=== PATIENT | female | born 1965 | race Caucasian/White ===

== ENCOUNTER 2019-01-23 05:46 | Day surgery (SDC) | payer MEDICAID, OTHER ==
[~2019-01-23] VITALS: Ht 165.1 cm; Wt 77.0 kg
[~2019-01-23 05:46] MED LIST: ATOR10TA65 PO; PRILOSEC
[2019-01-23 07:06] VITALS: Ht 165.1 cm; Wt 77.0 kg
[2019-01-23] MEDS ORDERED: PROPOFOL 60 ML ONE (07:38)
[2019-01-23] MEDS ORDERED: LIDOCAINE 2% (SDV) 5 ML INJ ONE (07:38)
--- NOTE | 2019-01-23 07:49 | PREAC ---
Date/Time of Note Date/Time of Note DATE: 01/23/19 TIME: 07:48 Anesthesia Eval and Record Evaluation Time Pre-Procedure Interview DATE: 01/23/19 TIME: 07:48 Age 53 Sex female NPO: 8 hrs Preoperative diagnosis dysphagia/screening Planned procedure EGD/Colonoscopy Past Medical History Past Medical History: Includes (barretts esophagus) Cardio: Dyslipidemia Surgery & Anesthesia Issues No known issue Meds Anticoagulation: No Beta Krystle within 24 hr: No Reason Beta Krystle not given: Pt. not on B-Krystle Reported Medications [Prilosec] No Conflict Check 01/23/19 Atorvastatin Calcium (Atorvastatin Calcium) 10 Mg Tab, 10 MG PO HS, TAB 06/13/14 Meds reviewed: Yes Allergies Coded Allergies: Sulfa (Sulfonamide Antibiotics) (Unverified Allergy, Unknown, 06/13/14) Allergies Reviewed: Yes Labs/Studies Labs Reviewed: Reviewed by anesthesiologist test: Negative Pre-procedure Exam Airway: Adequate mouth opening, Adequate thyromental dist Mallampati: Mallampati II Teeth: Normal Lung: Normal Heart: Normal ASA Physical Status ASA physical status: 2 Emergency: None Planned Anesthetic General/MAC: MAC Pre-operative Attestations Prior to commencing anesthesia and surgery, the patient was re-evaluated, there was verification of: *The patient's identity *The results of appropriate recent lab work and preoperative vital signs *The above evaluation not changing prior to induction *Anesthetic plan, risk benefits, alternative and complications discussed with patient/family; questions answered; patient/family understands, accepts and wishes to proceed. MAYTE BRAR Jan 23, 2019 07:49
[2019-01-23 08:06] VITALS: BP 124/74; PULSE 61; RESP 18
--- NOTE | 2019-01-23 08:56 | PAC ---
Date/Time of Note Date/Time of Note DATE: 01/23/19 TIME: 08:55 Post-Anesthesia Notes Post-Anesthesia Note Last documented vital signs Vital Signs Date Temp Pulse Resp B/P (MAP) Pulse Ox O2 O2 Flow FiO2 Time Delivery Rate 01/23/19 98.1 98 61 62 18 17 124/74 98 100 Room 08:06 085 (91) 105/ Air face 5 57 mask 8L Activity: WNL Respiratory function: WNL Cardiovascular function: WNL Mental status: Baseline Pain reasonably controlled: Yes Hydration appropriate: Yes Nausea/Vomiting absent: Yes MAYTE BRAR Jan 23, 2019 08:56
[2019-01-23 09:18] VITALS: BP 120/65; RESP 20
--- NOTE | 2019-01-23 11:28 | CONS ---
DATE OF ADMISSION: 01/23/2019 DATE OF CONSULTATION: PATIENT NAME: MELVI NOLASCO TYPE OF CONSULTATION: Preoperative gastroenterology Thank you very much for this kind referral. HISTORY OF PRESENT ILLNESS: Ms. Blanca Nolasco is a 53-year-old female patient who has been referr ed to me for further evaluation of gastroesophageal reflux disease, not responding to therapy with th e Prilosec. The patient has heartburn and dysphagia. She has occasional vomiting. The patient has history of Suarez's esophagus. Not on nonsteroidal anti-inflammatory agents. No history of gallsto michelle or liver disease. The patient has noticed a change in the bowel habit. No rectal bleeding. She never had screening colonoscopy. She is not a hypertensive or diabetic. No heart disease, lung pro blem or kidney disease. Has hyperlipidemia. SOCIAL HISTORY: Used to be a smoker, now she has quit smoking. No alcohol abuse. FAMILY HISTORY: No family history of gastrointestinal tract neoplasm. ALLERGIES: ALLERGIC TO SULFA. MEDICATIONS: 1. Atorvastatin. 2. Prilosec. PHYSICAL EXAMINATION: GENERAL: She is 5 feet 6 inches tall and weighs 155 pounds. HEART: Normal heart sounds. LUNGS: Clear. ABDOMEN: Soft, no masses. Normal bowel sounds. NEUROLOGIC: Normal. IMPRESSION: 1. Chronic heartburn and vomiting, not responding to therapy with Prilosec. 2. The patient complains of dysphagia. 3. History of Suarez esophagus. 4. Change in the bowel habit. 5. The patient never had screening colonoscopy. 6. Hyperlipidemia. 7. The patient used to be a smoker, now she has quit smoking. 8. ALLERGY TO SULFA. PLAN: Endoscopic examination and screening colonoscopy. The patient has history of resistance to narcotics and she needs monitored anesthesia care. The procedures and possible complications are well explained to the patient. She understands and con sents to the procedures. I thank you once again. With warmest personal regards, Dictated By: SHILPA ARCOS/RODGER Conf#: [id number] DID#: [id number]
== END 2019-01-23 10:57 | disposition home or self-care (01) ==
LOC: GIL 05:46
PROVIDERS: ATTEND Internal Medicine Gastroenterology
DX: Z12.11 Encounter for screening for malignant neoplasm of colon (principal); K64.8 Other hemorrhoids; K31.7 Polyp of stomach and duodenum; K20.9 Esophagitis, unspecified
CPT/HCPCS: 43239; 45378; 84703; 88305; 88312; 88313; Z7610